=== PATIENT | female | born 1985 ===

== ENCOUNTER 2023-09-30 09:01 | Emergency (ER) | payer SELFPAY ==
[~2023-09-30] VITALS: Ht 160 cm; Wt 63.6 kg
[2023-09-30 09:14] VITALS: BP 133/77; PULSE 90; RESP 18; TEMP 98.2
== END 2023-09-30 11:15 | disposition left against medical advice (07) ==
LOC: EMS 09:01
DX: R10.9 Unspecified abdominal pain (principal)
CPT/HCPCS: 93005; 99283